=== PATIENT | male | born 1950 | race Caucasian/White ===

== ENCOUNTER 2021-03-15 12:52 | Day surgery (SDC) | payer MEDICARE, OTHER ==
[~2021-03-15] VITALS: Ht 177.8 cm; Wt 104.3 kg
[2021-03-15] MEDS ORDERED: WARFARIN SODIU2.5 MG PO (13:17)
[2021-03-15] MEDS ORDERED: METOPROLOL TART50 MG PO (13:17)
[2021-03-15] MEDS ORDERED: LEVOTHYROXINE112 MCG PO (13:17)
[2021-03-15] MEDS ORDERED: PANTOPRAZOLE SO40 MG PO (13:17)
[2021-03-15] MEDS ORDERED: LISINOPRIL5 MG PO (13:18)
[2021-03-15] MEDS ORDERED: NITROGLYCERIN0.4 MG SL (13:19)
[2021-03-15] MEDS ORDERED: ATORVASTATIN CA40 MG PO (13:19)
[2021-03-15] MEDS ORDERED: CLOPIDOGREL75 MG PO (13:19)
[2021-03-15] MEDS ORDERED: LO-DOSE ASPIRIN81 M1 PO (13:20)
--- NOTE | 2021-03-15 14:51 | NUR ---
03/15/21 1451 Michelle Layne 1445 PT ARRIVED IN PACU AWAKE WITH NO C/O'S. ABD FIRM. ENCOURAGED TO PASS FLATUS. 1450 RESTING. REU.
--- NOTE | 2021-03-16 17:26 | PATH ---
[facility] [address] [place], [place] [address] Signed SPECIMEN(S): A ILEOCECAL VALVE POLYP SPECIMEN(S): B HEPATIC FLEXURE POLYP SPECIMEN(S): C POLYP AT 70 CM SPECIMEN SOURCE: A. ILEOCECAL VALVE POLYP B. HEPATIC FLEXURE POLYP C. POLYP AT 70 CM CLINICAL HISTORY: Colonoscopy. Hyperplastic polyp 2005. Postop: Polyps x 3. MICROSCOPIC DESCRIPTION: Histologic sections of all submitted blocks are examined by light microscopy. These findings, together with the gross examination, support the pathologic diagnosis. FINAL PATHOLOGIC DIAGNOSIS: A. Ileocecal valve, polypectomy: - Multiple fragments of tubular adenoma. - There is no evidence of high-grade dysplasia or malignancy. B. Colon, hepatic flexure, polypectomy: - Tubular adenoma, one fragment. - An additional fragment of colonic epithelium is within normal limits. - There is no evidence of high-grade dysplasia or malignancy. C. Colon, 70 cm, polypectomy: - No significant histopathology. - There is no evidence of neoplasia. COMMENT: Regarding specimen C, the sections from the specimen are architecturally normal without crypt distortion. There is no acute or chronic inflammation. There are no abnormal infiltrates. There is no evidence of inflammatory, hyperplastic or adenomatous polyps. TWK:meir:C2NR GROSS DESCRIPTION: Three specimens are received in three containers, labeled "SH." A. The specimen, labeled "SH, ileocecal valve polyp," is received in formalin and consists of two stone soft tissue fragments that measure 0.2 cm in greatest dimension. The specimen is entirely submitted in cassette (A1). PATIENT NAME: BOO ROMANO PATHOLOGY DATE OF : 46 REPORT #: [id number] PHYSICIAN: ANA LILIA EL PCP: JORDON GUILLEN DO REPORT IS CONFIDENTIAL AND NOT TO BE RELEASED WITHOUT AUTHORIZATION [facility] [address] [place], [place] [address] Signed B. The specimen, labeled "SH, hepatic flexure polyp," is received in formalin and consists of two stone soft tissue fragments that measure 0.1-0.2 cm in greatest dimension. The specimen is entirely submitted in cassette (B1). C. The specimen, labeled "SH, colon polyp at 70 cm," is received in formalin and consists of two stone soft tissue fragments that measure 0.2 cm in greatest dimension. The specimen is entirely submitted in cassette (C1). JS (under the direct supervision of a pathologist) The Gross Description was prepared using a voice recognition system. The report was reviewed for accuracy; however, sound-alike word errors, addition and/or deletions may occur. If there is any question about this report, please contact Client Services. PERFORMING LABORATORY: The technical component was performed by [facility], [address] [place] [id number] (Compliance Administrator: Keira Singh MD; CLIA# [id number]). [facility], [address] [place] [place] [address]. Diagnostician: Emmanuel Johnson MD Pathologist Electronically Signed 03/16/2021 Copies: ~ PATIENT NAME: BOO ROMANO PATHOLOGY DATE OF : 46 REPORT #: [id number] PHYSICIAN: ANA LILIA PATHOLOGY PCP: JORDON GUILLEN DO REPORT IS CONFIDENTIAL AND NOT TO BE RELEASED WITHOUT AUTHORIZATION
--- NOTE | 2021-03-18 16:26 | OR ---
[facility] [address] [place], [place] [address] Signed DATE OF OPERATION: 03/15/2021 SURGEON: Edu Christianson MD PREOPERATIVE DIAGNOSES: 1. Colon surveillance. 2. Multiple medical problems including atrial fibrillation, history of coronary stenting, and additional medical problems. POSTOPERATIVE DIAGNOSIS: Polyps x3 (excised). PROCEDURE: Total colonoscopy to cecum with cold morcellation polypectomy x3. ANESTHESIA: Intravenous sedation; fentanyl 100 mcg, Versed 4 mg. INDICATION: This 70-year-old white man is a patient of Dr. Guillen. He has numerous medical problems including atrial fibrillation as well as history of coronary stenting, requiring Plavix and aspirin. He is generally anticoagulated with Coumadin for his atrial fibrillation. He was seen in 2018 for consideration of colonoscopy, but had recently been placed on Plavix related to stenting. He was additionally on warfarin related to atrial fibrillation. A plan for colonoscopy was made, but thanks to the pandemic (COVID-19 pandemic). His planned colonoscopy has been delayed until this time. He is admitted at this time to undergo colonoscopy. He understands the risks of bleeding, infection, and perforation. He has been off his Coumadin for 4 days, though he remains on aspirin and Plavix. He understands the risks of bleeding, infection, and perforation related to colonoscopy and wished to proceed. FINDINGS: The prep was good. Complete colonoscopy was undertaken in the cecum. There was a small polyp in the ileocecal valve. Another at the hepatic flexure, another in the right transverse colon, all excised with cold morcellation technique. DESCRIPTION OF PROCEDURE: The patient was brought to the endoscopy suite and placed in lateral decubitus position, given intravenous sedation to the point of slurred speech and nystagmus. Full cardiopulmonary monitoring was maintained. Digital rectal examination was normal. Electronically Signed By: EDU CHRISTIANSON MD 03/18/21 1626 PATIENT NAME: BOO ROMANO OPERATIVE REPORT DATE OF : 46 REPORT #: [id number] PHYSICIAN: EDU CHRISTIANSON MD PCP: DMITRIY GUILLEN DO REPORT IS CONFIDENTIAL AND NOT TO BE RELEASED WITHOUT AUTHORIZATION [facility] [address] [place], [place] [address] Signed An Olympus video colonoscope was passed in the rectum and manipulated throughout the colon ultimately intubating the cecum itself. The ileocecal valve and appendiceal orifice were identified and found to be normal. Irrigation was undertaken as needed. The scope was carefully withdrawn and immediately noted was a small polyp of the ileocecal valve. This was excised with cold morcellation technique. The scope was further withdrawn and another polyp was noted at the hepatic flexure. This too was excised with cold morcellation technique. Further withdrawal of scope to the right transverse colon showed another similar polyp. It too was excised with cold morcellation technique. Further withdrawal of scope showed no other abnormality other than a few scattered diverticula of the sigmoid colon. Retroflexed view was normal. The scope was removed and the patient was taken to the recovery room in good condition. CONCLUDING DIAGNOSIS: Polyps x3. PLAN: Recommend repeat colonoscopy in 3 years sooner if clinically indicated. We will have him restart Coumadin tomorrow. Maintain continued use of Plavix and aspirin for now. Edu Christianson MD JM/MODL /[id number] cc: Dmitriy Guillen DO Copies: DMITRIY GUILLEN DO ~ Electronically Signed By: EDU CHRISTIANSON MD 03/18/21 1626 PATIENT NAME: BOO ROMANO OPERATIVE REPORT DATE OF : 46 REPORT #: [id number] PHYSICIAN: EDU CHRISTIANSON MD PCP: DMITRIY GUILLEN DO REPORT IS CONFIDENTIAL AND NOT TO BE RELEASED WITHOUT AUTHORIZATION
== END 2021-03-15 15:30 | disposition home or self-care (01) ==
LOC: OPS 12:52 → DS 12:58 → OPS 14:15 → DS 14:15 → OPS 15:30
PROVIDERS: ATTEND Surgery
PROC: 0DBL8ZX Excision of Transverse Colon, Via Natural or Artificial Opening Endoscopic, Diagnostic (ICD-10-PCS; 2021-03-15)
PROC: 0DBC8ZX Excision of Ileocecal Valve, Via Natural or Artificial Opening Endoscopic, Diagnostic (ICD-10-PCS; principal; 2021-03-15 14:15)
DX: Z12.11 Encounter for screening for malignant neoplasm of colon (principal); D12.3 Benign neoplasm of transverse colon; D12.0 Benign neoplasm of cecum; I48.91 Unspecified atrial fibrillation; K21.9 Gastro-esophageal reflux disease without esophagitis; E03.9 Hypothyroidism, unspecified; I25.10 Atherosclerotic heart disease of native coronary artery without angina pectoris; I10 Essential (primary) hypertension; Z79.82 Long term (current) use of aspirin; Z95.5 Presence of coronary angioplasty implant and graft; Z79.02 Long term (current) use of antithrombotics/antiplatelets
CPT/HCPCS: 88305; 99153; G0500; J2250; J3010; J7121

== ENCOUNTER 2024-08-08 09:50 | Day surgery (SDC) | payer MEDICARE, OTHER ==
[~2024-08-08] VITALS: Ht 177.8 cm; Wt 104.5 kg
--- NOTE | ~2024-08-08 | OR ---
[facility] [address] [place], [place] [address] Draft DATE OF OPERATION: 08/08/2024 SURGEON: Edu Christianson MD PREOPERATIVE DIAGNOSES: 1. Polyps x3 2020. 2. Multiple medical problems including chronic anticoagulation, on Coumadin and Plavix. POSTOPERATIVE DIAGNOSIS: Multiple polyps (nine in total). PROCEDURE: Total colonoscopy to cecum with cold snare polypectomy x3, cold morcellation polypectomy x6. ANESTHESIA: Intravenous sedation; fentanyl 100 mcg and Versed 3 mg. INDICATION: This 74-year-old white man is a patient of Dr. Leos in [place], [place]. He underwent colonoscopy in 2020 where he was found to have three polyps. He is admitted at this time to undergo surveillance colonoscopy. The patient does take Coumadin on a routine basis for atrial dysrhythmia as well as Plavix based on prior history of coronary stenting. He has been off his medications for three days. He understands the risk of bleeding, infection, and perforation related to colonoscopy and wished to proceed. FINDINGS: The prep was good. Complete colonoscopy was undertaken to the cecum with full intubation of the cecum. He did have various changes of his EKG during the course of the procedure, none of which were problematic. Some of which include what was likely atrial flutter. There were no adverse issues related to his rhythm, however. He did have diverticulosis of the sigmoid colon and nine polyps in total, one in the cecum, one in the right colon, another at the hepatic flexure, another in the transverse, left sigmoid, rectosigmoid and rectum. DESCRIPTION OF PROCEDURE: The patient was brought to the endoscopy suite and placed in the lateral decubitus position, given intravenous sedation to the point of slurred speech and nystagmus. Full cardiopulmonary monitoring was maintained. Digital rectal examination was normal. PATIENT NAME: BOO ROMANO OPERATIVE REPORT DATE OF : 46 REPORT #: [id number] PHYSICIAN: EDU CHRISTIANSON MD PCP: AL LEOS MD REPORT IS CONFIDENTIAL AND NOT TO BE RELEASED WITHOUT AUTHORIZATION [facility] [address] [place], [place] [address] Draft An Olympus video colonoscope was passed in the rectum and manipulated throughout the colon noting large mouth diverticula of the sigmoid. The scope was ultimately advanced to the cecum. The ileocecal valve and appendiceal orifice were normal. The scope was withdrawn and promptly noted was a small polyp, which was excised with cold morcellation technique. Further withdrawal showed a mid right colon polyp also small and excised with cold morcellation technique. At the hepatic flexure, was a somewhat larger polyp, excised with cold snare technique and upon withdrawal to the transverse colon, a small polyp excised with cold morcellation technique. Further withdrawal showed a left-sided colonic polyp excised with cold morcellation technique and in the sigmoid a larger polyp excised with cold snare technique. Further withdrawal showed a small polyp of the distal sigmoid noted in the rectosigmoid and two in the rectum, all excised with cold morcellation technique, in aggregate nine polyps were excised. The scope was withdrawn and removed. CONCLUDING DIAGNOSIS: Polyps x9. PLAN: Recommend repeat colonoscopy in three years, sooner if symptoms should develop. Will maintain high-fiber diet. He is instructed to restart his anticoagulation Coumadin and Plavix in two days. MD VANCE Javier/MODL /[id number] cc: Dr. Leos in [place], [place] Copies: ~ PATIENT NAME: BOO ROMANO OPERATIVE REPORT DATE OF : 46 REPORT #: [id number] PHYSICIAN: EDU CHRISTIANSON MD PCP: AL LEOS MD REPORT IS CONFIDENTIAL AND NOT TO BE RELEASED WITHOUT AUTHORIZATION
[~2024-08-08 09:50] MED LIST: ACETAMINOPHEN500 MG PO; ATORVASTATIN CA40 MG PO; CLOPIDOGREL75 MG PO; ESOMEPRAZOLE MA40 MG PO; IBLOOD GLUCOSE TEST STRIP 1 EA TEST VI PRN; IBUPROFEN600 MG PO; LACTATED RINGER'S 1,000 ML IV SCH; LEVOTHYROXINE112 MCG PO; LIDOCAINE HCL 1% 5 ML SDV INJ ONE; LISINOPRIL5 MG PO; LO-DOSE ASPIRIN81 M1 PO; METOPROLOL TART50 MG PO; MIDAZOLAM HCL 5 MG/5 ML VIAL IV PRN; NITROGLYCERIN0.4 MG SL; OXYCODON-ACETA1 EAC2 PO; PANTOPRAZOLE SO40 MG PO; PROSCAR5 MG PO; SINGULAIR10 MG PO; WARFARIN SODIU2.5 MG PO; ZETIA10 MG PO; fentaNYL citrate 100 MCG/2 ML VIAL IV PRN
[2024-08-08 10:20] VITALS: BP 160/90
[2024-08-08] MEDS ORDERED: MIDAZOLAM HCL 5 MG/5 ML VIAL ONE (11:01)
[2024-08-08] MEDS ORDERED: fentaNYL citrate 100 MCG/2 ML VIAL ONE (11:01)
--- NOTE | 2024-08-08 13:07 | NUR ---
08/08/24 1307 Abigail,Sahra 1231 PT ARRIVED TO PACU ON 2L VIA NC, PT AWAKE AND LOOKING AROUND ROOM PT DENIES PAIN AND NAUSEA, REPORTS SMALL AMOUNT OF "GAS PAIN." THREE LEAD PLACED DUE TO OR REPORT OF RHYTHM CHANGES DURING PROCEDURE. SINUS RHYTHM WITH SOME PVCS NOTED, JOURNEYMAN MOLDER REPORTS BASELINE RHYTHM FROM PRE-PROCEDURE. 1240 RN ENCOURAGES PT TO ROLL TO LEFT SIDE AND PASS GAS NEEDED.
[2024-08-08 13:16] VITALS: BP 148/88
--- NOTE | 2024-08-12 14:50 | PATH ---
[facility] [address] [place] [address] Signed SPECIMEN(S): A CECUM COLON POLYP SPECIMEN(S): B HEPATIC FLEXURE COLON POLYP SPECIMEN(S): C ASCENDING COLON POLYP SPECIMEN(S): D TRANSVERSE COLON POLYP SPECIMEN(S): E SIGMOID POLYP SPECIMEN(S): F RECTOSIGMOID POLYP SPECIMEN(S): G RECTOSIGMOID POLYP SPECIMEN(S): H RECTOSIGMOID POLYP SPECIMEN SOURCE: A. CECUM COLON POLYP B. HEPATIC FLEXURE COLON POLYP C. ASCENDING COLON POLYP D. TRANSVERSE COLON POLYP E. SIGMOID POLYP F. RECTOSIGMOID POLYP G. RECTOSIGMOID POLYP H. RECTOSIGMOID POLYP CLINICAL HISTORY: History of polyps. Post: Polyp. FINAL PATHOLOGIC DIAGNOSIS: A. Cecum colon polyp: - Tubular adenoma (one fragment). B. Hepatic flexure colon polyp: - Tubular adenoma (multiple fragments). C. Ascending colon polyp: - Tubular adenoma (one fragment). D. Transverse colon polyp: - Tubular adenoma (one fragment). E. Sigmoid polyp: - Tubular adenoma (one fragment). F. Rectosigmoid polyp: - Hyperplastic polyp (one fragment). G. Rectosigmoid polyp: - Hyperplastic polyp (one fragment). H. Rectosigmoid polyp: - Hyperplastic polyp (multiple fragments). JVR:cml PATIENT NAME: BOO ROMANO MYLA PATHOLOGY DATE OF : 46 REPORT #: [id number] PHYSICIAN: ANA LILIA EL PCP: AL LEOS MD REPORT IS CONFIDENTIAL AND NOT TO BE RELEASED WITHOUT AUTHORIZATION [facility] [address] [place], [place] [address] Signed MICROSCOPIC EXAMINATION: Histologic sections of all submitted blocks are examined by light microscopy. These findings, together with the gross examination, support the pathologic diagnosis. GROSS DESCRIPTION: A. The specimen, labeled and designated "Romano, S, cecum colon polyp," is received in formalin and consists of one stone soft tissue fragment, 0.4 cm. Entirely submitted in (A1). B. The specimen, labeled and designated "Romano, S, hepatic flexure colon polyp," is received in formalin and consists of three stone soft tissue fragments, ranging from 0.5-1.1 cm. Entirely submitted in (B1). C. The specimen, labeled and designated "Romano, S, ascending colon polyp," is received in formalin and consists of one stone soft tissue fragment, 0.4 cm. Entirely submitted in (C1). D. The specimen, labeled and designated "Romano, S, transverse colon polyp," is received in formalin and consists of one stone soft tissue fragment, 0.3 cm. Entirely submitted in (D1). E. The specimen, labeled and designated "Romano, S, sigmoid polyp," is received in formalin and consists of two stone soft tissue fragments, ranging from 0.2-0.3 cm. Entirely submitted in (E1). F. The specimen, labeled and designated "Romano, S, rectosigmoid polyps #1," is received in formalin and consists of one stone soft tissue fragment, 0.3 cm. Entirely submitted in (F1). G. The specimen, labeled and designated "Romano, S, rectosigmoid polyp #2," is received in formalin and consists of one stone soft tissue fragment, 1.2 cm. Entirely submitted in (G1). H. The specimen, labeled and designated "Nilesh Romano, rectosigmoid polyp #3," is received in formalin and consists of six stone soft tissue fragments, ranging from 0.2-0.4 cm. Entirely submitted in (H1). AB (under the direct supervision of a pathologist) The Gross Description was prepared using a voice recognition system. The report was reviewed for accuracy; however, sound-alike word errors, addition and/or deletions may occur. If there is any question about this report, please contact Client Services. PERFORMING LABORATORY: Technical component was performed by [facility], [address] [place] [id number] (CLIA# [id number]). PATIENT NAME: BOO ROMANO PATHOLOGY DATE OF : 46 REPORT #: [id number] PHYSICIAN: ANA LILIA EL PCP: AL LEOS MD REPORT IS CONFIDENTIAL AND NOT TO BE RELEASED WITHOUT AUTHORIZATION [facility] [address] [place] [id number] Signed Professional interpretation was performed at [facility] [address] [place], [facility] (CLIA#: [id number]). Diagnostician: David Mo MD Pathologist Electronically Signed 08/12/2024 Copies: ~ PATIENT NAME: BOO ROMANO PATHOLOGY DATE OF : 46 REPORT #: [id number] PHYSICIAN: ANA LILIA PATHOLOGY PCP: AL LEOS MD REPORT IS CONFIDENTIAL AND NOT TO BE RELEASED WITHOUT AUTHORIZATION
== END 2024-08-08 13:27 | disposition home or self-care (01) ==
LOC: DS 09:50
PROVIDERS: ATTEND Surgery
PROC: 0DBL8ZZ Excision of Transverse Colon, Via Natural or Artificial Opening Endoscopic (ICD-10-PCS; 2024-08-08)
PROC: 0DBN8ZZ Excision of Sigmoid Colon, Via Natural or Artificial Opening Endoscopic (ICD-10-PCS; 2024-08-08)
PROC: 0DBP8ZZ Excision of Rectum, Via Natural or Artificial Opening Endoscopic (ICD-10-PCS; principal; 2024-08-08 10:45)
DX: Z12.11 Encounter for screening for malignant neoplasm of colon (principal); D12.0 Benign neoplasm of cecum; D12.3 Benign neoplasm of transverse colon; D12.2 Benign neoplasm of ascending colon; D12.5 Benign neoplasm of sigmoid colon; K63.5 Polyp of colon; K57.30 Diverticulosis of large intestine without perforation or abscess without bleeding; I48.91 Unspecified atrial fibrillation; I25.10 Atherosclerotic heart disease of native coronary artery without angina pectoris; I10 Essential (primary) hypertension; E03.9 Hypothyroidism, unspecified; Z86.0100 Personal history of colon polyps, unspecified; Z79.01 Long term (current) use of anticoagulants; Z79.02 Long term (current) use of antithrombotics/antiplatelets; Z79.890 Hormone replacement therapy; Z79.899 Other long term (current) drug therapy; Z88.5 Allergy status to narcotic agent; Z88.8 Allergy status to other drugs, medicaments and biological substances; Z95.5 Presence of coronary angioplasty implant and graft
CPT/HCPCS: 99153; G0500; J2250; J3010; J7121